=== PATIENT | female | born 1975 | race Caucasian/White ===

== ENCOUNTER → 2017-05-12 | Outpatient (CLI) | payer BC ==
[~2017-05-12] MED LIST: FLUO10CA48 PO; HYDR5SYP11 PO; MULT-506 PO; OXYC-57 PO; PANT40TA PO; PRT/20 PO
--- NOTE | 2017-05-13 08:08 | MAMMOGRAPHY REPORT ---
BILATERAL DIGITAL SCREENING MAMMOGRAM TOMOSYNTHESIS WITH CAD: 05/12/2017 CLINICAL HISTORY: Routine screening. Patient has no complaints. TECHNIQUE: Breast tomosynthesis in addition to standard 2D mammography was performed. Current study was also evaluated with a Computer Aided Detection (CAD) system. COMPARISON: Comparison is made to exam dated: 04/02/2016 mammogram - [facility]. BREAST COMPOSITION: The tissue of both breasts is heterogeneously dense, which may obscure small mas ses. FINDINGS: The parenchymal pattern is unchanged. No developing mass, architectural distortion or clus ter of suspicious microcalcifications is seen in either breast. IMPRESSION: ACR BI-RADS CATEGORY 2: BENIGN There is no mammographic evidence of malignancy. A 1 year screening mammogram is recommended. The pa tient will receive written notification of the results. Approximately 10% of breast cancers are not detected with mammography. A negative mammographic report should not delay biopsy if a clinically suggestive mass is present. Kathy Hull M.D. ay/:05/12/2017 16:00:57 Lifestyle Director: Maricarmen MARTINEZ(Evette)(Wilfred), [facility] letter sent: Normal 1/2 BI-RADS Code: ACR BI-RADS Category 2: Benign
== END | disposition home or self-care (01) ==
LOC: C.MAMM 15:08
PROVIDERS: ATTEND Obstetrics & Gynecology
DX: Z12.31 Encounter for screening mammogram for malignant neoplasm of breast (principal)

== ENCOUNTER 2017-07-02 23:11 | Emergency (ER) | payer BC ==
[~2017-07-02] VITALS: Ht 167.6 cm; Wt 54.5 kg
[~2017-07-02 23:11] MED LIST changes: -HYDR5SYP11 PO; -MULT-506 PO; -OXYC-57 PO; -PRT/20 PO
[2017-07-02 23:17] VITALS: TEMP 36.7; Ht 167.6 cm; Wt 54.5 kg
[2017-07-02] MEDS ORDERED: LORAZEPAM 2 MG/ML 1 ML VIAL IV STA (23:21)
[2017-07-02] MEDS ORDERED: KETOROLAC TROMETHAMINE 30 MG/ML VIAL IV STA (23:21)
[2017-07-02] MEDS ORDERED: SODIUM CHLORIDE 0.9% 1000ML 2,000 ML IV STA (23:21)
[2017-07-02] MEDS ORDERED: DiphenhydrAMINE HCL 50 MG/ML VIAL IV STA (23:21)
--- NOTE | 2017-07-02 23:25 | EMERGENCY ROOM VISIT NOTE ---
History Report prepared by Jackson: Aditya Anders Under the Supervision of: Dr. Frankie Armendariz M.D. First contact with patient: 23:15 Chief Complaint: HEADACHE Stated Complaint: HEADACHE; NAUSEA History of Present Illness The patient is a 42 year old female who presents to the Emergency Room with complaints of a worsening headache that started around 9 hours ago. Per EMS, the patient's friend noted that the patient is addicted to narcotics. The patient says that her headache has been gradually worsening throughout the day, and she feels very nauseous. She states that she is dizzy, and has been starting to sweat and shake. The patient says that the headache is in the front , and she has gotten headaches in the past only occasionally. She states that she has not vomited yet but thinks she would feel better if she did. The patient denies any falls or head injuries, as well as any chest pain, abdominal pain, body aches, fevers, neck stiffness, diarrhea, rashes, urinary symptoms, or ankle swelling. The patient's friend says that the patient has depression and is on Prozac. The patient says that she has a prescription for Percocet and Vicodin, and the patient's friend says that the patient has been on Vicodin for 4 years. The patient says that she usually takes Vicodin daily at night, but she has not taken any for the past couple days. She is not on any blood thinners and denies any chance of . Source of History: patient, friend, EMS Onset: 9 hours ago Position: head (front) Quality: other (headache) Timing: worsening Associated Symptoms: + diaphoresis, + nausea, No fevers, No neck pain, No vomiting, No abdominal pain, No diarrhea, No urinary symptoms, No rash Note: Associated symptoms: Shaking. Dizzy. Denies body aches or ankle swelling. Review of Systems See HPI for pertinent positives & negatives. A total of 10 systems reviewed and were otherwise negative. Past Medical & Surgical Medical Problems: (1) Asthma (2) Bronchitis (3) Gallbladder disease (4) GERD (gastroesophageal reflux disease) (5) Gestational diabetes mellitus Family History Diabetes mellitus FH: cancer FH: gallbladder disease FH: lung disease FHx: heart disease Hypertension Kidney disease Kidney stones Social History Smoking Status: Never Smoker Alcohol Use: none Drug Use: none Marital Status: Housing Status: lives with family Occupation Status: employed Current/Historical Medications Scheduled Fluoxetine (Prozac), 10 MG PO DAILY Multivitamin (Multivitamin), 1 TAB PO DAILY Pantoprazole (Protonix), 20 MG PO DAILY Scheduled PRN Hydrocodone W/ Homatropine (Hycodan 5/1.5MG 5 Ml), 5 ML PO Q4H PRN for Cough Oxycodone/Acetaminophen 5MG/325MG (Percocet 5MG/325MG), 1-2 TABLETS PO Q4H PRN for Pain Allergies Coded Allergies: Raspberry (Verified Allergy, Mild, RASH, 07/02/17) Physical Exam Vital Signs Date Time Temp Pulse Resp B/P (MAP) Pulse Ox O2 Delivery O2 Flow Rate FiO2 07/03/17 01:04 82 18 119/78 99 07/03/17 00:08 86 18 126/86 100 Room Air 07/02/17 23:17 36.7 90 18 116/82 98 Room Air Physical Exam GENERAL: Patient is nauseous, periodically dry heaving, in mild distress. HEENT: No acute trauma, normocephalic atraumatic, mucous membranes moist, no nasal congestion, no scleral icterus. NECK: No stridor, no adenopathy, no meningismus, trachea is midline. LUNGS: No dyspnea. Clear to auscultation and equal bilaterally. No wheeze, no rhonchi. HEART: Regular rate and rhythm. No murmurs, rubs, gallops appreciated. ABDOMEN: Soft, nontender, bowel sounds positive, no masses appreciated, no peritonitis. BACK: No midline tenderness, no CVA tenderness EXTREMITIES: Normal motion all extremities, no cyanosis, no edema. NEUROLOGIC: Alert and oriented, no acute motor or sensory deficits, no focal weakness, cranial nerves grossly intact. SKIN: No rash, no jaundice. Mildly diaphoretic, piloerection of skin. Medical Decision & Procedures ER Provider Diagnostic Interpretation: Radiology results and stated below per my review and radiologist interpretation: X ray results are stated below per my interpretation: Chest: 1 view: No infiltrate, no effusion, normal cardiac border. CT HEAD: No acute intracranial process. Radiologist: Doug Woods M.D. Laboratory Results 07/02/17 22:50 Red Blood Count 4.18, Mean Corpuscular Volume 93.5, Mean Corpuscular Hemoglobin 32.1, Mean Corpuscular Hemoglobin Concent 34.3, Mean Platelet Volume 9.7, Neutrophils (%) (Auto) 82.8, Lymphocytes (%) (Auto) 10.6, Monocytes (%) (Auto) 5.2, Eosinophils (%) (Auto) 0.8, Basophils (%) (Auto) 0.3, Neutrophils # (Auto) 10.73, Lymphocytes # (Auto) 1.37, Monocytes # (Auto) 0.68, Eosinophils # (Auto) 0.10, Basophils # (Auto) 0.04 07/02/17 22:50 Test 07/02/17 22:50 White Blood Count 12.96 K/uL (4.8-10.8) Red Blood Count 4.18 M/uL (4.2-5.4) Hemoglobin 13.4 g/dL (12.0-16.0) Hematocrit 39.1 % (37-47) Mean Corpuscular Volume 93.5 fL (80-100) Mean Corpuscular Hemoglobin 32.1 pg (25-34) Mean Corpuscular Hemoglobin Concent 34.3 g/dl (32-36) Platelet Count 357 K/uL (130-400) Mean Platelet Volume 9.7 fL (7.4-10.4) Neutrophils (%) (Auto) 82.8 % Lymphocytes (%) (Auto) 10.6 % Monocytes (%) (Auto) 5.2 % Eosinophils (%) (Auto) 0.8 % Basophils (%) (Auto) 0.3 % Neutrophils # (Auto) 10.73 K/uL (1.4-6.5) Lymphocytes # (Auto) 1.37 K/uL (1.2-3.4) Monocytes # (Auto) 0.68 K/uL (0.11-0.59) Eosinophils # (Auto) 0.10 K/uL (0-0.5) Basophils # (Auto) 0.04 K/uL (0-0.2) RDW Standard Deviation 41.0 fL (36.4-46.3) RDW Coefficient of Variation 12.0 % (11.5-14.5) Immature Granulocyte % (Auto) 0.3 % Immature Granulocyte # (Auto) 0.04 K/uL (0.00-0.02) Anion Gap 8.0 mmol/L (3-11) Est Creatinine Clear Calc Drug Dose 77.7 ml/min Estimated GFR () 103.0 Estimated GFR (Non- 88.9 BUN/Creatinine Ratio 16.8 (10-20) Calcium Level 9.3 mg/dl (8.5-10.1) Total Bilirubin 0.5 mg/dl (0.2-1) Direct Bilirubin < 0.1 mg/dl (0-0.2) Aspartate Amino Transf (AST/SGOT) 24 U/L (15-37) Alanine Aminotransferase (ALT/SGPT) 29 U/L (12-78) Alkaline Phosphatase 62 U/L (45-117) Total Creatine Kinase 144 U/L (26-192) Total Protein 7.8 gm/dl (6.4-8.2) Albumin 4.4 gm/dl (3.4-5.0) Lipase 128 U/L (73-393) Laboratory results as reviewed by me. Medications Administered Medications (Trade) Dose Ordered Sig/Kale Route Start Time Stop Time Status Last Admin Dose Admin Sodium Chloride 2,000 ml @ 999 mls/hr Q2H1M STAT IV 07/02/17 23:21 07/03/17 01:21 DC 07/02/17 23:27 999 MLS/HR Ketorolac Tromethamine (Toradol Inj) 30 mg NOW STAT IV 07/02/17 23:21 07/02/17 23:23 DC 07/02/17 23:27 30 MG Diphenhydramine HCl (Benadryl Inj) 50 mg NOW STAT IV 07/02/17 23:21 07/02/17 23:23 DC 07/02/17 23:28 50 MG Lorazepam (Ativan Inj) 1 mg NOW STAT IV 07/02/17 23:21 07/02/17 23:23 DC 07/02/17 23:29 1 MG Ondansetron HCl (ZOFRAN ODT 4MG Home Pack) 1 homepack UD ONCE PO 07/03/17 00:45 07/03/17 00:46 DC 07/03/17 01:02 1 HOMEPACK ECG Indication: nausea Rate (beats per minute): 87 Rhythm: normal sinus Findings: no acute ischemic change, no ectopy ED Course 2316: The patient was evaluated in room A12B. A complete history and physical exam was performed. 2321: Ordered Ativan Inj 1 mg IV, Benadryl Inj 50 mg IV, Toradol Inj 30 mg IV, NSS 2000 ml @ 999 mls/hr IV. 0025: I reevaluated the patient and she is feeling much better. The patient verbally expressed understanding and agreement of the treatment plan. The patient will be discharged. 0045: Ordered Zofran ODT 4MG Home Pack 1 homepack PO. Medical Decision Differential: Opioid withdrawal, headache, Migraine, Cluster Headache, Seizure, Meningitis, Sinusitis, CO exposure, ICH/SAH, Infectious, Tumor, Sinus Thrombosis , Arterial Dissection, amongst other pathologies entertained. 42 yr old female arrives for evaluation of nausea, vomiting, frontal headache and abdominal cramping. Work-up benign. Given above with resolution of symptoms. Work up benign. Suspect this is primarily GI viral bug, but there may be element of narcotic withdrawal. 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 She was given nSS bolus and home with PO Zofran. RTED if worsening or other concerns. She does not have symptoms consistent with migraine, dissection, sah/ich, etc. Medication Reconcilliation Current Medication List: was personally reviewed by me Blood Pressure Screening Patient's blood pressure: Normal blood pressure Impression Primary Impression: Headache Additional Impression: Nausea & vomiting Scribe Attestation The scribe's documentation has been prepared under my direction and personally reviewed by me in its entirety. I confirm that the note above accurately reflects all work, treatment, procedures, and medical decision making performed by me. Departure Information Dispostion Home / Self-Care Patient Instructions My [facility] Additional Instructions Continue to keep well hydrated. Avoid heavy and fatty foods. Return if worsening headache, weakness, fevers, altered mental status, abdominal pain or other concerns. Follow up with your primary care provider for further evaluation. Problem Qualifiers
[2017-07-02 23:48] LABS: BASO % 0.3 %; BASO ABS # 0.04 K/uL (0-0.2); COMPLETE YES; EOS % 0.8 %; HEMATOCRIT 39.1 % (37-47); IG% 0.3 %; LYMPH % 10.6 %; LYMPH ABS # 1.37 K/uL (1.2-3.4); MEAN CELL VOLUME 93.5 fL (80-100); MEAN CORPUSCULAR HEMOGLOBIN 32.1 pg (25-34); MEAN CORPUSCULAR HGB CONC 34.3 g/dl (32-36); MEAN PLATELET VOLUME 9.7 fL (7.4-10.4); MONO % 5.2 %; NEUT % 82.8 %; PLATELET COUNT 357 K/uL (130-400); RED BLOOD COUNT 4.18 M/uL (4.2-5.4); WHITE BLOOD COUNT 12.96 K/uL (4.8-10.8)
[2017-07-02] MEDS ORDERED: MULT-506 PO (23:54)
[2017-07-02] MEDS ORDERED: HYDR5SYP11 PO (23:54)
[2017-07-02] MEDS ORDERED: OXYC-57 PO (23:54)
[2017-07-02] MEDS ORDERED: PRT/20 PO (23:54)
[2017-07-03 00:06] LABS: ALT/SGPT 29 U/L (12-78); BLOOD UREA NITROGEN 14 mg/dl (7-18); BUN/CREATININE RATIO 16.8 (10-20); CALCIUM 9.3 mg/dl (8.5-10.1); CARBON DIOXIDE 28 mmol/L (21-32); CHLORIDE 99 mmol/L (98-107); CREATININE 0.82 mg/dl (0.60-1.20); GLUCOSE 141 mg/dl (70-99); POTASSIUM 3.1 mmol/L (3.5-5.1); SODIUM 135 mmol/L (136-145)
[2017-07-03 00:09] LABS: ALKALINE PHOSPHATASE 62 U/L (45-117); AST/SGOT 24 U/L (15-37)
[2017-07-03] MEDS ORDERED: ONDANSETRON HOME PACK 4MG OD TAB PO ONE (00:45)
[2017-07-03 01:04] VITALS: BP 119/78; PULSE 82; O2SAT 99
--- NOTE | 2017-07-03 05:53 | DIAGNOSTIC IMAGING REPORT ---
HEAD WITHOUT CONTRAST (CT) CLINICAL HISTORY: 42 years-old Female presenting with Frontal headache, gradual onset 10 hours. TECHNIQUE: Multidetector CT imaging of the head was performed PICC line IV contrast: None. A dose lowering technique was used consistent with the principles of ALARA (as low as reasonably achievable). COMPARISON: None. CT DOSE (mGy.cm): The estimated cumulative dose is 537.48 mGy.cm. FINDINGS: Bunk Assembler topogram: Unremarkable. Ventricles and sulci normal in size. Brain parenchyma normal in appearance with preserved heredia-white differentiation. No mass effect or midline shift. No hemorrhage or acute territorial infarct. No extra-axial fluid collection. Paranasal sinuses and mastoid air cells clear. Calvarium intact. IMPRESSION: 1. No acute intracranial pathology. Electronically signed by: Ryan Ewing M.D. 07/03/2017 5:51 AM Dictated Date/Time: 07/03/2017 5:50 AM
--- NOTE | 2017-07-03 05:59 | DIAGNOSTIC IMAGING REPORT ---
CHEST ONE VIEW PORTABLE CLINICAL HISTORY: 42 years-old Female presenting with Chest Pain. TECHNIQUE: Portable upright AP view of the chest was obtained. COMPARISON: 07/07/2015. FINDINGS: Cardiomediastinal silhouette normal. Lungs and pleural spaces clear. Osseous structures normal. Upper abdomen normal. IMPRESSION: 1. No acute cardiopulmonary disease. Electronically signed by: Ryan Ewing M.D. 07/03/2017 5:58 AM Dictated Date/Time: 07/03/2017 5:57 AM
== END 2017-07-03 01:04 | disposition home or self-care (01) ==
LOC: EDBD 23:11 → C.EDA 23:12
DX: R51 Headache (principal); R11.2 Nausea with vomiting, unspecified; J45.909 Unspecified asthma, uncomplicated; K21.9 Gastro-esophageal reflux disease without esophagitis; Z83.3 Family history of diabetes mellitus; Z82.49 Family history of ischemic heart disease and other diseases of the circulatory system

== ENCOUNTER → 2017-10-26 | Outpatient (CLI) | payer OTHER ==
[~2017-10-26] MED LIST changes: +HYDR5SYP11 PO; +MULT-506 PO; +OXYC-57 PO; -PANT40TA PO; +PRT/20 PO
== END | disposition home or self-care (01) ==
LOC: C.PAPS 11:44
PROVIDERS: ATTEND Obstetrics & Gynecology
DX: Z12.4 Encounter for screening for malignant neoplasm of cervix (principal)

== ENCOUNTER 2018-05-15 05:57 | Inpatient (IN) | payer OTHER ==
[2018-05-15] VITALS (10 sets, daily range): BP systolic 104–118; BP diastolic 65–86; PULSE 79–102; TEMP 36.7–37; O2SAT 94–99; Ht 167.6 cm; Wt 56.8 kg
[~2018-05-15] VITALS: Ht 167.6 cm; Wt 56.8 kg
[~2018-05-15 05:57] MED LIST changes: -HYDR5SYP11 PO; -OXYC-57 PO; +PANT40TA PO; -PRT/20 PO
[2018-05-15] MEDS ORDERED: CeleBREX 200 MG CAP PO SCH (06:00)
[2018-05-15] MEDS ORDERED: ACETAMINOPHEN 500 MG TAB PO SCH (06:00)
[2018-05-15] MEDS ORDERED: SCOPOLAMINE 1.5 MG TDSY TD SCH (06:00)
[2018-05-15] MEDS ORDERED: CEFAZOLIN 1000MG IV PUSH 7.5 ML IV SCH (06:00)
[2018-05-15] MEDS ORDERED: GABAPENTIN 900 MG PO SCH (06:00)
[2018-05-15] MEDS ORDERED: LACTATED RINGER'S 1000ML 1,000 ML IV SCH (06:00)
[2018-05-15] MEDS ORDERED: MIDAZOLAM HCL 1 MG/ML 2ML VIAL ONE (06:37)
[2018-05-15] MEDS ORDERED: FENTANYL CITRATE INJ 50 MCG/1 ML 2 ML VIAL ONE ×2 (06:37→07:57)
[2018-05-15] MEDS ORDERED: BACITRACIN 50000 UNIT VIAL ONE (07:03)
[2018-05-15] MEDS ORDERED: BUPIVACAINE/EPINEPHRINE 0.5% MPF 1:200,000 30 ML VIAL ONE (07:03)
--- NOTE | 2018-05-15 07:28 | History & Physical Bridge Note ---
H&P Re-Evaluation Bridge Note: I have examined the patient, reviewed the History & Physical and in the interval since the performance of the History & Physical I have noted the following changes of clinical significance: No changes noted
--- NOTE | 2018-05-15 07:29 | History and Physical ---
History & Physical Date May 15, 2018. Chief Complaint Back and leg pain History of Present Illness The patient is a 43 year old female with complaints of back and leg pain Past Medical/Surgical History Medical Problems: (1) Asthma (2) Bronchitis (3) Gallbladder disease (4) GERD (gastroesophageal reflux disease) (5) Gestational diabetes mellitus Additional History Hepatic Disease: No Endocrine Disorder: No Kidney Disease: No Hypertension: No Heart Disease: No Bleeding Tendencies: No Infectious Diseases: No Allergies Coded Allergies: NO KNOWN DRUG ALLERGIES (Verified Allergy, Unknown, NONE, 05/15/18) Home Medications Scheduled Fluoxetine (Prozac), 20 MG PO QAM Multivitamin (Multivitamin), 1 TAB PO QAM Pantoprazole (Protonix), 40 MG PO QAM Physical Examination Skin: warm/dry, no rash Eyes: normal inspection, EOMI, sclerae normal ENT: normal ENT inspection, pharynx normal Head: normocephalic, atraumatic Neck: supple, no adenopathy, trachea midline Respiratory/Chest: lungs clear, normal breath sounds, no respiratory distress Cardiovascular: regular rate, rhythm, no edema, no murmur Abdomen / GI: normal bowel sounds, non tender Back: normal inspection Extremities: normal inspection, normal range of motion Neurologic/Psych: no motor/sensory deficits, alert, normal reflexes, oriented x 3 Diagnosis Recurrent disc herniation L5-S1 Plan of Treatment Lumbar decompression and fusion L5-S1
[2018-05-15] MEDS ORDERED: BUPIVACAINE 0.5 % 5 MG/1 ML PF 10ML VIAL ONE (07:47)
[2018-05-15] MEDS ORDERED: SODIUM CHLORIDE 0.9% PF 50 ML VIAL ONE (07:47)
[2018-05-15] MEDS ORDERED: BUPIVACAINE LIPOSOME 1/3% 266 MG/20 ML VIAL ONE (07:47)
[2018-05-15] MEDS ORDERED: HYDROmorphone INJ 2 MG/ML SYR/VIAL ONE ×2 (07:57→09:13)
[2018-05-15] MEDS ORDERED: DEXAMETHASONE SOD INJ 4 MG/ML VIAL ONE (08:20)
[2018-05-15] MEDS ORDERED: PHENYLEPHRINE 100MCG/ML 5ML SYR ONE (08:20)
[2018-05-15] MEDS ORDERED: LIDOCAINE HCL 2% 2 ML VIAL (20MG/ML) ONE (08:20)
[2018-05-15] MEDS ORDERED: PROPOFOL IV EMULSION 10 MG/ML 20 ML VIAL ONE (08:20)
[2018-05-15] MEDS ORDERED: ONDANSETRON INJ 2 MG/ML 2 ML VIAL ONE ×2 (08:20→09:12)
[2018-05-15] MEDS ORDERED: MEPERIDINE HCL 25 MG/ML CARP IV PRN (09:00)
[2018-05-15] MEDS ORDERED: EpHEDrine SULFATE INJ 50 MG/ML AMP IV PRN (09:00)
[2018-05-15] MEDS ORDERED: LABETALOL HCL IV 5 MG/ML 20ML IV PRN (09:00)
[2018-05-15] MEDS ORDERED: ONDANSETRON INJ 2 MG/ML 2 ML VIAL IV PRN ×2 (09:00→09:15)
[2018-05-15] MEDS ORDERED: ATROPINE SULFATE 0.1 MG/ML 5ML SYR IV PRN (09:00)
[2018-05-15] MEDS ORDERED: FLOSEAL HEMOSTATIC MATRIX 10ML TOP ONE (09:05)
--- NOTE | 2018-05-15 09:10 | [facility] Operative Report ---
Operative Report Operative Date May 15, 2018. Pre-Operative Diagnosis Recurrent disc herniation L5-S1 Post-Operative Diagnosis Recurrent disc herniation L5-S1 Procedure(s) Performed 1. Revision decompression medial vasectomy foraminotomies L5-S1. #2 posterior spinal fusion L5-S1. #3 placed posterior instrumentation L5-S1. #4 interbody fusion L5-S1. #5 placement of titanium 9 x 22 mm cage L5-S1. #6 placement of local autograft in the posterior lateral gutters per #7 placement InFUSE collagen sponge combined master graft in the posterior gutters and ostial amp in the interbody space. Surgeon Dr. Allen Ford Control Room Agent Surgeon(s) Abimbola Roach PA-C Estimated Blood Loss 100 Findings Recurrent disc herniation L5-S1 on the left Specimens none per surgeon Description of Procedure Patient was met with preoperatively case discussed all questions addressed. After informed consent obtained patient was taken to the operative suite underwent intubation placed in prone position on top of the Harlan frame all bony prominences well-padded eyes inspected to ensure no external pressure placed upon the. This point the lumbar spine was prepped and draped in the normal sterile fashion. Sharp dissection with the assistance Bovie cautery was performed down to and exposing the process of L5 and sacral ala bilaterally. From calluses cephalad fashion revision complete laminectomy L5 was performed including medial facetectomy foraminotomy on the left addressing massive recurrent disc herniation. Pedicle screws were then placed in L5-S1 levels bilaterally with the assistance of fluoroscopy the purposes laurel provisionally placed. Through a transforaminal approach and left complete discectomy was performed endplates created to subcortical bleeding bone and a 9 x 22 mm titanium cage with ostium bone graft tapped in position. Rods were then compressed locked in final position bilaterally. The transverse process of L5 and sacral ala were burred to subcortical bleeding bone. Infuse collagen sponge master graft and local autograft placed in the posterior gutters. 15 round TUNG drain inserted. Approximately 80 cc of Exparel injected into the musculature. Incision was then closed with 1 Vicryl fascia 2-0 Vicryl subcutaneous a 4 Monocryl for fast closure Steri-Strips sterile dressings placed. Patient will continue PACU stable condition. note Abimbola Palomino present throughout the entire procedure involved in patient positioning complex portions of the surgery and final skin closure. I attest to the content of the Intraoperative Record and any orders documented therein. Any exceptions are noted below.
[2018-05-15] MEDS ORDERED: LARYING-O-JET KIT (LTA) ONE (09:12)
[2018-05-15] MEDS ORDERED: GLYCOPYRROLATE INJ 0.2 MG/ML VIAL ONE (09:12)
[2018-05-15] MEDS ORDERED: KETOROLAC TROMETHAMINE 30 MG/ML VIAL ONE (09:12)
[2018-05-15] MEDS ORDERED: NEOSTIGMINE METHYLSULFATE 1 MG/ML 10ML VIAL ONE (09:12)
[2018-05-15] MEDS ORDERED: METOCLOPRAMIDE HCL INJ 5 MG/ML 2 ML VIAL IV PRN (09:15)
[2018-05-15] MEDS ORDERED: ACETAMINOPHEN 500 MG TAB PO PRN (09:15)
[2018-05-15] MEDS ORDERED: DO NOT ADMINISTER FLU VACCINE PRN (09:15)
[2018-05-15] MEDS ORDERED: NALOXONE HCL 0.4 MG/1 ML VIAL/CARP IV PRN (09:15)
[2018-05-15] MEDS ORDERED: LORAZEPAM INJ 0.5 MG in SYRINGE 0 ML IV PRN (09:15)
[2018-05-15] MEDS ORDERED: FAMOTIDINE 20 MG TAB PO PRN (09:15)
[2018-05-15] MEDS ORDERED: MAGNESIUM HYDROXIDE SUSP 30 ML UDC PO PRN (09:15)
[2018-05-15] MEDS ORDERED: DO NOT ADMINISTER PNEUMOCOCCAL VACCINE PRN (09:15)
[2018-05-15] MEDS ORDERED: PROMETHAZINE HCL INJ 12.5 MG in SODIUM CHLORIDE 0.9% 50ML 50 ML IV PRN (09:15)
[2018-05-15] MEDS ORDERED: SOD PHOSPHATE/SOD BIPHOSPHATE ENEMA 132 ML BTL PR PRN (09:15)
[2018-05-15] MEDS ORDERED: BISACODYL 10 MG SUPP PR PRN (09:15)
[2018-05-15] MEDS ORDERED: hydrOXYzine HCL 25 MG TAB PO PRN (09:15)
[2018-05-15] MEDS ORDERED: ALUMINUM/MAGNESIUM SUSP 30 ML UDC PO PRN (09:15)
[2018-05-15] MEDS ORDERED: CEFAZOLIN IV 1,000 MG in DEXTROSE 5% 50ML 50 ML IV SCH (09:15)
[2018-05-15] MEDS ORDERED: ACETAMINOPHEN IV 100 ML IV PRN (09:15)
[2018-05-15] MEDS: FENTANYL CITRATE INJ 50 MCG/1 ML 2 ML VIAL IV PRN ×4 (09:30→10:43)
--- NOTE | 2018-05-15 09:32 | DIAGNOSTIC IMAGING REPORT ---
LUMBAR SPINE 2 OR 3 VIEW HISTORY: 43 years-old Female L5-S1 DECOMPRESSION AND FUSION status post laminectomy with fusion and discectomy at L5-S1 COMPARISON: Lumbar spine MRI 04/17/2018 TECHNIQUE: 2 spot fluoroscopic images of lumbar spine were obtained utilizing 23.3 seconds fluoroscopy time FINDINGS: Postoperative changes from laminectomy and discectomy with posterior interbody laurel and screw fusion at L5-S1. Alignment appears satisfactory. Multilevel spondylitic spurring. IMPRESSION: Fluoroscopic assistance as above. Please see operative report for further details. The above report was generated using voice recognition software. It may contain grammatical, syntax or spelling errors. Electronically signed by: Wan Griggs M.D. 05/15/2018 9:30 AM Dictated Date/Time: 05/15/2018 9:29 AM
[2018-05-15] MEDS: HYDROmorphone INJ 0.5 MG/0.5 ML SYR IV PRN ×11 (09:42→21:55)
[2018-05-15] MEDS ORDERED: LORAZEPAM 2 MG/ML 1 ML VIAL ONE (10:08)
[2018-05-15] MEDS ORDERED: NURSING VERBAL MED ORDER ONE ×2 (10:15→11:00)
--- NOTE | 2018-05-15 11:14 | Anesthesiology Progress Note ---
Anesthesia Post Op Note Date & Time May 15, 2018 at 11:13 Vital Signs Pain Intensity: 6.0 Vital Signs Past 12 Hours Date Time Temp Pulse Resp B/P (MAP) Pulse Ox O2 Delivery O2 Flow Rate FiO2 05/15/18 11:00 113 17 105/83 99 Nasal Cannula 2 05/15/18 10:50 109 18 120/77 98 Nasal Cannula 2 05/15/18 10:40 111 17 132/95 100 Nasal Cannula 2 05/15/18 10:30 88 19 122/89 99 Nasal Cannula 2 05/15/18 10:20 96 13 126/91 100 Nasal Cannula 2 05/15/18 10:10 98 18 131/93 100 Nasal Cannula 2 05/15/18 10:00 91 15 136/91 100 Nasal Cannula 2 05/15/18 09:50 100 16 146/89 100 Nasal Cannula 2 05/15/18 09:40 90 20 116/80 100 Oxymask 10 05/15/18 09:30 88 22 126/90 100 Oxymask 10 05/15/18 09:22 36.6 110 20 136/92 100 Oxymask 10 05/15/18 06:28 37 92 16 115/86 99 Room Air Notes Mental Status: alert / awake / arousable, participated in evaluation Pt Amnestic to Procedure: Yes Nausea / Vomiting: adequately controlled Pain: adequately controlled Airway Patency, RR, SpO2: stable & adequate BP & HR: stable & adequate Hydration State: stable & adequate Anesthetic Complications: no major complications apparent
[2018-05-15] MEDS: SODIUM CHLORIDE 0.9% 1000ML 1,000 ML IV SCH ×2 (13:39→21:12)
[2018-05-15] MEDS ORDERED: ROCURONIUM BROMIDE 10 MG/ML 5 ML VIAL ONE (14:11)
[2018-05-15] MEDS: CEFAZOLIN IV 1,000 MG in SYRINGE 0 ML IV SCH ×2 (16:12→23:56)
[2018-05-15] MEDS: CHECK SCOPOLAMINE PATCH PLACEMENT SCH ×3 (16:12→16:14)
[2018-05-15] MEDS: OXYCODONE HCL IR 5 MG TAB (IMMEDIATE RELEASE) PO PRN ×2 (17:05→21:11)
[2018-05-15] MEDS: KETOROLAC TROMETHAMINE 30 MG/ML VIAL IV PRN (17:43)
[2018-05-15] MEDS ORDERED: NURSING DECISION MEDICATION ORDER SCH (21:00)
[2018-05-15] MEDS: DOCUSATE SODIUM/SENNA 50/8.6MG TAB PO SCH (21:11)
[2018-05-16] MEDS: HYDROmorphone INJ 0.5 MG/0.5 ML SYR IV PRN ×8 (01:06→20:01)
[2018-05-16 03:55] VITALS: BP 113/71; PULSE 67; TEMP 36.7; O2SAT 100
[2018-05-16] MEDS: SODIUM CHLORIDE 0.9% 1000ML 1,000 ML IV SCH (03:55)
[2018-05-16 05:47] LABS: BASO % 0.1 %; BASO ABS # 0.02 K/uL (0-0.2); EOS % 0.1 %; EOS ABS # 0.01 K/uL (0-0.5); HEMOGLOBIN 11.2 g/dL (12.0-16.0); IG# 0.05 K/uL (0.00-0.02); LYMPH % 10.8 %; LYMPH ABS # 2.13 K/uL (1.2-3.4); MEAN CELL VOLUME 95.2 fL (80-100); MEAN CORPUSCULAR HEMOGLOBIN 31.4 pg (25-34); MEAN CORPUSCULAR HGB CONC 32.9 g/dl (32-36); MEAN PLATELET VOLUME 9.7 fL (7.4-10.4); MONO % 7.2 %; MONO ABS # 1.41 K/uL (0.11-0.59); NEUT % 81.5 %; NEUT ABS # 16.09 K/uL (1.4-6.5); PLATELET COUNT 274 K/uL (130-400); RED CELL DISTRIBUTION WIDTH CV 12.5 % (11.5-14.5); RED CELL DISTRIBUTION WIDTH SD 43.5 fL (36.4-46.3); WHITE BLOOD COUNT 19.71 K/uL (4.8-10.8)
[2018-05-16 06:12] LABS: CREATININE 0.68 mg/dl (0.60-1.20); POTASSIUM 3.5 mmol/L (3.5-5.1)
[2018-05-16] MEDS ORDERED: NURSING VERBAL MED ORDER ONE (06:30)
[2018-05-16] MEDS ORDERED: RXC5 PO (07:35)
--- NOTE | 2018-05-16 07:36 | Discharge Instructions ---
Discharge Instructions Date of Service May 16, 2018. Admission Reason for Admission: Spinal Stenosis Discharge Discharge Diagnosis / Problem: lumbar stenosis Discharge Goals Goal(s): Improve function Activity Recommendations Activity Limitations: per Instructions/Follow-up section . Instructions / Follow-Up Instructions / Follow-Up ACTIVITY RECOMMENDATIONS: SELF CARE INSTRUCTIONS AFTER THORACIC/LUMBAR FUSIONS 1. You may walk to your tolerance. It is good exercise for your legs and back. Expect some back and intermittent leg aches and pains. 2. You may perform "counter-top" level activities (make a sandwich, beryl with a project, etc.). 3. No bending or lifting of more than 10 pounds or back twisting of any nature (roll like a log when turning in bed). 4. You may ride in a car for 20-30 minutes at a time. No driving until after your first visit with your doctor. 5. Frequent changes of position and restricting sitting to 30 minutes at a time will help limit the amount of back spasms and stiffness you may experience. 6. You may discontinue the use of ambulatory aids (cane, crutches, etc.) once your strength and confidence allow. 7. You may sql database administrator the shower and let water strike your incision when you arrive home at least once daily. Do not take a tub bath, sit in a hot tub or go into a swimming pool until after your first recheck in the office. SPECIAL CARE INSTRUCTIONS: VERY IMPORTANT TO READ AND REVIEW A. Your surgical incision has been closed with a cosmetic suture under the skin that will dissolve in about 6 weeks. In 14 days, you can use a pair of clean scissors and cut the suture that is left outside of the skin at the ends of your incision. 1. The small skin tapes can be removed 7 days after surgery if they have not fallen off by that point. 2. You may keep the wound open to air as much as possible to promote healing after post-op day number 5 unless told otherwise by your doctor. 3. If you think the wound looks like it is becoming infected (redness or worsening drainage) and/or you are experiencing fever, chill or worsening back pain and muscle spasms, contact the office so that we may evaluate you as soon as possible. B. Complications are uncommon, but please contact us if you have any signs or symptoms of: 1. wound infection (fever higher than 102.5 degrees F, redness, separation of wound, drainage, or increasing pain from the incision) 2. blood clots in legs (pain, swelling, redness and warmth in legs) 3. urinary tract infection (fever higher than 102.5 degrees F, burning upon urination or increased frequency of urination) 4. nerve problems (inability to walk on your toes or heels, numbness, loss of bowel or bladder control) 5. any other symptoms that concern you C. Please call the office at if you have any concerns or questions about your operation or recovery. D. No smoking! Smoking drastically decreases the chance of a solid fusion. E. Do not take any anti-inflammatory medications (Indocin, Advil, Motrin, Aspirin, Naprosyn, etc.) as these may inhibit the chance of a solid fusion. Tylenol is okay to take for pain. MANAGING PAIN AFTER SPINAL SURGERY 1. Narcotic medication is intended for short-term use and will be provided for surgical pain. Surgical pain usually lasts for a period of 4-6 weeks. Narcotic medication includes Percocet, Vicodin, Darvocet, Tylenol #3 or Lortab. 2. Longer-term pain is more appropriately treated with non-narcotic medication such as Tylenol ES. 3. Muscle spasm is not appropriately treated with narcotics. Muscle relaxers such as Soma, Flexeril or Skelaxin can be used along with Tylenol ES. 4. Remember that we all live with some "aches and pains". This is not unusual or uncommon after an injury or as we get older. a. Back pain is expected and may include muscle spasms for 4 to 6 weeks after surgery. The pain should gradually improve. If the pain worsens for no apparent reason, please contact the office. b. Intermittent leg pain may also be experienced and should not be concerned about unless it worsens for no apparent reason. If so, please contact the office. 5. We will provide appropriate medication within the normal guidelines of their prescribed use. We will also be very cautious and aware of potential abuse and extended duration of patients' medication needs. a. Pain medications are for your comfort and to assist with sleep and rest so that the tissue can heal. They are not provided in order to return to normal activity and should not be used through the day. To do so or worsening pain at night can result from ongoing tissue damage and development of tolerance to the prescribed medicine. 6. Please allow 2-3 days to process refills. Prescriptions will not be mailed but must be picked up at the office. FOLLOW UP VISIT: Keep your scheduled follow-up appointment. Any questions, please call the office at . Current Hospital Diet Patient's current hospital diet: Regular Diet Discharge Diet Recommended Diet: Regular Diet Procedures Procedures Performed: L5-S1 Decompression Fusion; Application of Bone Morphogenetic Protein and Osteoamp Pending Studies Studies pending at discharge: no Medical Emergencies . Who to Call and When: Medical Emergencies: If at any time you feel your situation is an emergency, please call 911 immediately. . Non-Emergent Contact Non-Emergency issues call your: Primary Care Provider . "Provider Documentation" section prepared by Allen Ford. .
[2018-05-16 08:21] VITALS: BP 107/72; PULSE 73; TEMP 36.7; O2SAT 100
[2018-05-16] MEDS: MULTIVITAMIN TAB PO SCH (08:34)
[2018-05-16] MEDS: PANTOprazole SOD 40 MG TAB PO SCH (08:34)
[2018-05-16] MEDS: FLUOXETINE HCL 20 MG CAP PO SCH (08:34)
[2018-05-16] MEDS: OXYCODONE HCL IR 5 MG TAB (IMMEDIATE RELEASE) PO PRN ×2 (08:37→22:26)
--- NOTE | 2018-05-16 10:23 | Progress Note ---
Progress Note Date of Service May 16, 2018. Progress Note Patient's back pain is controlled leg symptoms markedly improved vital signs stable. On exam she is good strength testing is comfortable. Assessment status post lumbar decompression fusion per plan at this time will continue therapy as tolerated hopefully discharge home tomorrow.
--- NOTE | 2018-05-16 10:32 | Anesthesiology Progress Note ---
Anesthesia Post Op Note Date & Time May 16, 2018 at 10:32 Vital Signs Vital Signs Past 12 Hours Date Time Temp Pulse Resp B/P (MAP) Pulse Ox O2 Delivery O2 Flow Rate FiO2 05/16/18 09:09 Room Air 05/16/18 08:21 36.7 73 16 107/72 (84) 100 Room Air 05/16/18 03:55 36.7 67 16 113/71 (85) 100 Room Air 05/15/18 23:45 Nasal Cannula 05/15/18 23:05 36.7 79 16 104/65 (78) 98 Room Air Notes Mental Status: alert / awake / arousable, participated in evaluation Pt Amnestic to Procedure: Yes Nausea / Vomiting: adequately controlled Pain: adequately controlled Airway Patency, RR, SpO2: stable & adequate BP & HR: stable & adequate Hydration State: stable & adequate Anesthetic Complications: no major complications apparent
[2018-05-16 11:36] VITALS: BP 128/88; PULSE 67; TEMP 36.7; O2SAT 96
[2018-05-16] MEDS: LORAZEPAM 0.5 MG TAB PO PRN (15:21)
[2018-05-16] MEDS: KETOROLAC TROMETHAMINE 30 MG/ML VIAL IV PRN ×2 (15:22→23:15)
[2018-05-16 15:35] VITALS: BP 102/66; PULSE 68; TEMP 36.7; O2SAT 98
[2018-05-16] MEDS: DOCUSATE SODIUM/SENNA 50/8.6MG TAB PO SCH (20:00)
[2018-05-16 23:14] VITALS: BP 122/77; PULSE 68; TEMP 36.8; O2SAT 100
[2018-05-17] MEDS: LORAZEPAM 0.5 MG TAB PO PRN (00:09)
[2018-05-17] MEDS: HYDROmorphone INJ 0.5 MG/0.5 ML SYR IV PRN ×4 (00:10→15:27)
[2018-05-17] MEDS: POLYETHYLENE (MIRALAX) 17 GM PACK PO SCH ×2 (06:05→11:49)
[2018-05-17] MEDS: OXYCODONE HCL IR 5 MG TAB (IMMEDIATE RELEASE) PO PRN ×3 (06:09→16:07)
[2018-05-17 07:08] VITALS: BP 95/61; PULSE 68; TEMP 36.7; O2SAT 100
[2018-05-17] MEDS: PANTOprazole SOD 40 MG TAB PO SCH (08:05)
[2018-05-17] MEDS: MULTIVITAMIN TAB PO SCH (08:05)
[2018-05-17] MEDS: FLUOXETINE HCL 20 MG CAP PO SCH (08:05)
--- NOTE | 2018-05-17 13:02 | Discharge Summary ---
Orthopedic Discharge Summary Admission Date/Reason May 15, 2018 at 09:13 Spinal Stenosis. Discharge Date/Disposition May 17, 2018 Home Diagnosis Principal Diagnosis: Lumbar spinal stenosis with radiculopathy Admission Physical Exam As per Admitting History & Physical. Hospital Course Patient underwent lumbar decompression fusion tolerated this well was taken with orthopedic for postoperative. Postop day #1 she was up and amatory progressed the postop day #2 TUNG drain decreased appropriately. Pain controlled. Subsequently discharged home. Discharge orders and instructions can be found in the chart for further review. Discharge Instructions Please refer to the electronic Patient Visit Report (Discharge Instructions) for additional information.
[2018-05-17 15:11] VITALS: BP 118/81; PULSE 92; TEMP 36.3; O2SAT 100
[2018-05-17 16:14] VITALS: BP 118/81; PULSE 92; TEMP 36.3; O2SAT 100
== END 2018-05-17 16:25 | disposition home or self-care (01) | DRG 455 ==
LOC: C.ACU 05:57 → C.3E 09:13 → ENRESERV 09:58
PROVIDERS: ADMIT Orthopaedic Surgery Orthopaedic Surgery of the Spine; ATTEND Orthopaedic Surgery Orthopaedic Surgery of the Spine
PROC: 0SG3071 Fusion of Lumbosacral Joint with Autologous Tissue Substitute, Posterior Approach, Posterior Column, Open Approach (ICD-10-PCS; principal; 2018-05-15 07:45)
PROC: 0SG30AJ Fusion of Lumbosacral Joint with Interbody Fusion Device, Posterior Approach, Anterior Column, Open Approach (ICD-10-PCS; principal; 2018-05-15 07:45)
PROC: 0ST40ZZ Resection of Lumbosacral Disc, Open Approach (ICD-10-PCS; principal; 2018-05-15 07:45)
DX: M48.07 Spinal stenosis, lumbosacral region (principal); M51.17 Intervertebral disc disorders with radiculopathy, lumbosacral region; J45.909 Unspecified asthma, uncomplicated; K21.9 Gastro-esophageal reflux disease without esophagitis; Z79.899 Other long term (current) drug therapy